=== PATIENT | female | born 1985 | race Caucasian/White ===

== ENCOUNTER 2023-04-13 08:44 | Outpatient (CLI) | payer MEDICAID, SELFPAY | END 2023-04-13 08:45 | disposition home or self-care (01) | PROVIDERS: PCP Internal Medicine; Visit Provider Internal Medicine | DX: Z00.00 Encounter for general adult medical examination without abnormal findings (principal); F41.9 Anxiety disorder, unspecified; Z13.6 Encounter for screening for cardiovascular disorders | CPT/HCPCS: 80053; 80061 ==

== ENCOUNTER 2024-04-07 08:50 | Outpatient (CLI) | payer SELFPAY | END 2024-04-07 08:51 | disposition home or self-care (01) | LOC: NFLDREF 04-16 16:15 | PROVIDERS: PCP Internal Medicine; Referring Provider Internal Medicine; Visit Provider Internal Medicine | DX: Z13.220 Encounter for screening for lipoid disorders (principal); Z13.228 Encounter for screening for other metabolic disorders | CPT/HCPCS: 80053; 80061 ==

== ENCOUNTER 2024-12-03 07:00 | Emergency (ER) | payer OTHER, SELFPAY ==
[2024-12-03 07:04] VITALS: BP 144/84; PULSE 85; RESP 17; O2SAT 97; BMI 24.4
--- NOTE | 2024-12-03 07:15 | ED.GENADULT ---
HPI - General Adult General Chief complaint: Unspecified Complaint, Adult Stated complaint: facial swelling, left arm numbness Time Seen by Provider: 12/03/24 07:10 History of Present Illness HPI narrative: Patient is a 39-year-old woman who is action my primary care patient who presents with right-sided facial swelling. She has significant dental caries and lack of dental care. She has had no fevers no chills no night sweats. She has no stiff neck no headache. 2nd issue she is having difficulty with muscle strength in the left hand after falling on her elbow several months ago. She states she fell on her elbow and she had what sounds like a nerve injury in the short term which resolved. Her symptoms came back several days ago and now she is having a difficult time with gripping strength in the left hand. No other focal neurologic defects. Related Data Previous Rx's ?Medication ?Instructions ?Recorded prazosin 2 mg capsule 2 mg PO QHS Insomnia #90 caps 03/14/24 aripiprazole 30 mg tablet 30 mg PO QDAY #30 tabs 08/02/24 buspirone 7.5 mg tablet 7.5 mg PO BID Anxiety #180 tabs 09/05/24 bupropion HCl 150 mg 24 hr tablet, 150 mg PO DAILY #90 tabs 10/18/24 extended release sertraline 100 mg tablet 200 mg (2 x 100 mg) PO QDAY 10/18/24 Anxiety #180 tabs zolpidem 10 mg tablet (Ambien) 10 mg PO DAILY PRN insomnia #30 10/31/24 tabs carisoprodol 350 mg tablet (Soma) 350 mg PO QID pain #120 tabs 11/21/24 alprazolam 2 mg tablet 2 mg PO TID PRN anxiety #90 tabs 12/02/24 Allergies Allergy/AdvReac Type Severity Reaction Status Date / Time No Known Allergies Allergy Verified 12/03/24 07:04 Review of Systems Status of ROS: Reports: 10 or more systems reviewed and unremarkable except as noted in History and below [facility] Medical History Pelvic floor weakness ?N81.89 - Other female genital prolapse (ICD-10) Joint pain ?M25.50 - Pain in unspecified joint (ICD-10) Healthcare maintenance ?Z00.00 - Encounter for general adult medical examination without abnormal findings (ICD-10) Bipolar disorder ?F31.9 - Bipolar disorder, unspecified (ICD-10) Otitis media ?H66.90 - Otitis media, unspecified, unspecified ear (ICD-10) Insomnia ?G47.00 - Insomnia, unspecified (ICD-10) Pain ?R52 - Pain, unspecified (ICD-10) Family History Other Diabetes Social History Narrative: Tobacco use What is your current living situation?: I presently have a place to live Problems where you live: no known problems In the past 12 months, utilities in danger of being shut off: no In past 12 months, lack of transportation kept you from medical appts, meetings, work, or getting things needed for daily living: no In the past 12 mos, have been you worried that your food would run out before you had money to buy more?: never true In the past 12 mos, the food you bought just didn't last and you didn't have money to buy more?: never true Smoking Status: Current every day smoker How often does anyone, including family, friends and others, physically hurt you: never How often does anyone, including family, friends and others, insult or talk down to you: rarely How often does anyone, including family, friends and others, threaten you with harm: never How often does anyone, including family, friends and others, scream or curse at you: never Health Related Social Needs: Other personal risk factors, not elsewhere classified (Z91.89) Exam Narrative: Exam Narrative: EXAM GENERAL: Patient appears comfortable and well. EYES: No scleral icterus. Facial swelling noted on the right consistent with underlying dental infection. ENT: Tympanic membranes and oropharynx normal. THYROID: no thyroid nodules or thyromegaly. LYMPH: No supraclavicular or cervical lymphadenopathy. SKIN: Visible skin seen during exam normal or with benign process only. EXT: No dependent lower extremity pedal edema. HEART: Regular rate and rhythm with no murmurs, rubs, or gallops. LUNGS: Clear to auscultation bilaterally with no crackles or wheezes. ABD: Soft, non tender, non distended. PSYCH: Good eye contact, speech is not pressured. Neurologic patient does have weakness in the left hand consistent with mild nerve impingement. Const: Vital Signs, click to edit/add: Vital Signs - 24 hr 12/03/24 07:04 Pulse Rate [Pulse Oximeter] 85 Respiratory Rate 17 Blood Pressure [Ri ght Upper Arm] 144/84 H Pulse Oximetry 97 Oxygen Delivery Me thod Room Air Course Course ED Course: Patient seen examined. I do feel like she has a dental infection which is causing the swelling of the right mandible. I do think that she would benefit from a course of amoxicillin. In addition patient is having a nerve irritation and impingement of the left wrist and did place her on a short course of prednisone. Patient is my primary care patient and we have made arrangements follow-up this coming week in the next several days. All questions were answered. Vital Signs Vital signs: Initial Vital Signs Pulse Rate 85 12/03/24 07:04 Respiratory Rate 17 12/03/24 07:04 Blood Pressure 144/84 H 12/03/24 07:04 Blood Pressure Mean 104 12/03/24 07:04 Pulse Oximetry 97 12/03/24 07:04 Oxygen Delivery Method Room Air 12/03/24 07:04 Vital Signs Pulse Rate 85 12/03/24 07:04 Respiratory Rate 17 12/03/24 07:04 Blood Pressure 144/84 H 12/03/24 07:04 Pulse Oximetry 97 12/03/24 07:04 Oxygen Delivery Method Room Air 12/03/24 07:04 Pulse Rate 85 12/03/24 07:04 Respiratory Rate 17 12/03/24 07:04 Blood Pressure 144/84 H 12/03/24 07:04 Pulse Oximetry 97 12/03/24 07:04 Oxygen Delivery Method Room Air 12/03/24 07:04 Discharge Plan Discharge Clinical Impression: Dental infection Patient Disposition: Home, Self-Care Condition: Stable Instructions: Dental Abscess (ED) Additional Instructions: Amoxicillin as directed Prednisone as directed Follow-up Dr. Irvin this week if needed Continue pain control on outpatient medication. Activity Level: No Restrictions Discharge Diet: Regular Prescriptions: No Action aripiprazole 30 mg tablet 30 mg PO QDAY Qty: 30 3RF buspirone 7.5 mg tablet 7.5 mg PO BID Qty: 180 3RF prazosin 2 mg capsule 2 mg PO QHS Qty: 90 2RF sertraline 100 mg tablet 200 mg PO QDAY Qty: 180 1RF bupropion HCl 150 mg tablet extended release 24 hr 150 mg PO DAILY Qty: 90 1RF zolpidem [Ambien] 10 mg tablet 10 mg PO DAILY PRN (Reason: insomnia) Qty: 30 0RF carisoprodol [Soma] 350 mg tablet 350 mg PO QID Qty: 120 0RF alprazolam 2 mg tablet 2 mg PO TID PRN (Reason: anxiety) Qty: 90 0RF Follow Up/Referrals: Michael Irvin MD [Primary Care Provider, Internal Medicine] Stand Alone Forms: [facility] Info Instructions
== END 2024-12-03 07:30 | disposition home or self-care (01) ==
PROVIDERS: Emergency Provider Internal Medicine; PCP Internal Medicine
DX: K04.7 Periapical abscess without sinus (principal)
CPT/HCPCS: 99283